=== PATIENT | female | born 1975 | race Caucasian/White ===

== ENCOUNTER 2017-11-29 16:28 | Emergency (ER) | payer OTHER ==
[2017-11-29 17:07] LABS: BASOPHILS 1.3 % (0-2); EOSINOPHILS 2.4 % (0-7); HEMATOCRIT 41.4 % (36.0-48.0); HEMOGLOBIN 13.7 g/dL (12-16); IMMATURE GRANULOCYTES 0.7 % (0-5); LYMPHOCYTES 24.6 % (15-50); MCH 30.9 pg (26.0-34.0); MCHC 33.1 g/dL (31.0-37.0); MCV 93.5 fL (80.0-100.0); MEAN PLATELET VOLUME 10.3 fL (7.4-10.4); MONOCYTES 14.5 % (2-11); NEUTROPHILS 56.5 % (40-80); RBC 4.43 10x6/uL (4.00-5.40); RDW 14.4 % (11.5-14.5); WBC 4.6 10x3/uL (4.8-10.8)
[2017-11-29 17:33] LABS: ALBUMIN 3.4 g/dL (3.4-5.0); ALKALINE PHOSPHATASE 138 U/L (46-116); ALT (SGPT) 97 U/L (10-68); BILIRUBIN - TOTAL 0.23 mg/dL (0.2-1.3); CALC OSMOLALITY 279 mosm/kg (275-300); CALCIUM 8.6 mg/dL (8.5-10.1); CARBON DIOXIDE 30.1 mmol/L (21.0-32.0); CHLORIDE - SERUM 105 mmol/L (98-107); CREATININE - SERUM 0.8 mg/dL (0.6-1.3); GLUCOSE 97 mg/dL (74-106); POTASSIUM - SERUM 3.8 mmol/L (3.5-5.1); PROTEIN - SERUM 6.8 g/dL (6.4-8.2); SODIUM 141 mmol/L (136-145); UREA NITROGEN 9 mg/dL (7-18); eGFR NON AFRICAN AMERICAN 82 mL/min (90-120)
[2017-11-29 17:36] LABS: PLATELET COUNT 179 10x3/uL (130-400)
== END 2017-11-29 21:10 | disposition home or self-care (01) ==
LOC: D.ER 16:28
PROVIDERS: Family Medicine
DX: J45.901 Unspecified asthma with (acute) exacerbation (principal); J20.9 Acute bronchitis, unspecified; F17.200 Nicotine dependence, unspecified, uncomplicated